=== PATIENT | female | born 1965 | race Caucasian/White ===

== ENCOUNTER 2019-11-19 16:47 | Emergency (ER) | payer BC, SELFPAY ==
[2019-11-19 16:57] VITALS: BP 130/100; PULSE 78; RESP 16; TEMP 36.7; O2SAT 94
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
[2019-11-19] MEDS: Cyclobenzaprine 10 MG TAB, 3 TABS/BTL PO (18:00)
== END 2019-11-19 18:10 | disposition home or self-care (01) ==
PROVIDERS: Emergency Provider Emergency Medicine
DX: S87.82XA Crushing injury of left lower leg, initial encounter (principal); S80.12XA Contusion of left lower leg, initial encounter; W23.1XXA Caught, crushed, jammed, or pinched between stationary objects, initial encounter; V86.62XA Passenger of snowmobile injured in nontraffic accident, initial encounter
CPT/HCPCS: 29515; 99283; 73590; L4361